=== PATIENT | female | born 1990 | race African-American/Black ===

== ENCOUNTER 2016-10-14 14:07 | Emergency (ER) | payer OTHER ==
[2016-10-14 14:18] VITALS: BMI 43.9
[2016-10-14 16:02] LABS: BASOPHIL 0.6 % (0-2.0); EOSINOPHIL 1.3 % (0-4.5); MCH 26.7 pg (25.7-33.7); MCHC 32.5 g/dl (32.0-36.0); MEAN CELL VOLUME 82.2 fl (80-96); MEAN PLT VOLUME 8.6 fl (7.5-11.1); NEUTROPHILS 77.5 % (42.8-82.8); PLATELET COUNT 254 K/MM3 (134-434); RDW 14.4 % (11.6-15.6); WHITE BLOOD COUNT 16.2 K/mm3 (4.0-10.0)
[2016-10-14 16:04] LABS: URINE APPEARANCE CLEAR; URINE BILIRUBIN NEGATIVE (NEGATIVE); URINE COLOR YELLOW; URINE GLUCOSE (UA) NEGATIVE (NEGATIVE); URINE KETONE NEGATIVE (NEGATIVE); URINE NITRITE NEGATIVE (NEGATIVE); URINE PROTEIN NEGATIVE (NEGATIVE); URINE UROBILINOGEN NEGATIVE E.U./dl (0.2-1.0)
[2016-10-14 16:15] LABS: URINE BLOOD 3+ (NEGATIVE); URINE LEUK ESTERASE TRACE (NEGATIVE)
[2016-10-14 16:21] LABS: URINE MUCUS FEW; URINE RBC 47 /hpf (0-3); URINE WBC 31 /hpf (3-5)
--- NOTE | 2016-10-14 16:25 | PDOC ---
History of Present Illness - History of Present Illness Initial Comments: 10/14/16 17:38 CHIEF COMPLAINT: ectopic HISTORY OF PRESENT ILLNESS: 25 yo A3 (1st preg PROM at 5 months, emergent c- section, second 2 preg medical abortions, 4th preg L ectopic preg managed successfully with methotrexate) F with no other PMH was sent to ED by [employer] for confirmed ectopic on US. Patient reports she is unsure what side the ectopic is on but denies any pain. She does report vaginal bleeding. No recent travel or sick contacts. PAST MEDICAL HISTORY: as per HPI FAMILY HISTORY: Denies SOCIAL HISTORY: Denies tobacco, alcohol, illicit drug use. SURGICAL HISTORY: Denies ALLERGIES: wheat REVIEW OF SYSTEMS General/Constitutional: Denies fever or chills. Denies weakness. HEENT: Denies change in vision. Denies ear pain or discharge. Denies sore throat. Cardiovascular: Denies chest pain or shortness of breath. Respiratory: Denies cough, wheezing, or hemoptysis. Gastrointestinal: Vaginal bleeding. Denies nausea, vomiting, diarrhea or constipation. Denies rectal bleeding. Genitourinary: Denies dysuria, frequency, or change in urination. Musculoskeletal: Denies joint or muscle swelling or pain. Denies neck or back pain. Skin and breasts: Denies rash or easy bruising. Neurologic: Denies headache, vertigo, loss of consciousness, or loss of sensation. PHYSICAL EXAM General Appearance: Well-appearing, appropriately dressed. No apparent distress. HEENT: EOMI, PERRLA, normal ENT inspection, normal voice, TMs normal, pharynx normal. No conjunctival pallor. No photophobia, scleral icterus. Neck: Supple. Trachea midline. No tenderness, rigidity, carotid bruit, stridor , lymphadenopathy, or thyromegaly. Respiratory/Chest: Lungs CTAB. No shortness of breath, chest tenderness, respiratory distress, accessory muscle use. No crackles, rales, rhonchi, stridor , wheezing, dullness Cardiovascular: RRR. S1, S2. No JVD, murmur, bradycardia, tachycardia. Vascular Pulses: Dorsalis-Pedis (R): 2+, Dorsalis-Pedis (L): 2+ Gastrointestinal/Abdominal: Normal bowel sounds. Abdomen soft, non-distended. No tenderness or rebound tenderness. No organomegaly, pulsatile mass, guarding , hernia, hepatomegaly, splenomegaly. Musculoskeletal/Extremities: Normal inspection. FROM of all extremities, normal capillary refill. Pelvis Stable. No CVA tenderness. No tenderness to extremities, pedal edema, swelling, erythema or deformity. Integumentary: Appropriate color, dry, warm. 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 Fully oriented, alert. Appropriate mood/affect. Motor strength 5/5. No appreciable EOM palsy, facial droop or sensory deficit. 10/14/16 18:56 <Cynthia Salinas - Last Filed: 10/14/16 18:56> <Abhishek Warren - Last Filed: 10/14/16 19:53> - General Chief Complaint: Vaginal Bleeding Stated Complaint: PHYSICAN REFERRAL Time Seen by Provider: 10/14/16 14:42 Past History - Past Medical History Anemia: No Asthma: No Cancer: No Cardiac Disorders: No Dementia: No Suicide Attempt (Hx): No - Reproductive History Is Patient Now?: Yes (#): 4 Para: 0 - Psycho/Social/Smoking Cessation Hx Anxiety: No Suicidal Ideation: No Smoking Status: No Smoking History: Current some day smoker Have you smoked in the past 12 months: Yes Number of Cigarettes Smoked Daily: 3 Information on smoking cessation initiated: No Hx Alcohol Use: No Drug/Substance Use Hx: No Substance Use Type: None Hx Substance Use Treatment: No <Cynthia Salinas - Last Filed: 10/14/16 18:56> <Abhishek Warren - Last Filed: 10/14/16 19:53> - Past Medical History Allergies/Adverse Reactions: Allergies Allergy/AdvReac Type Severity Reaction Status Date / Time wheat AdvReac Verified 10/14/16 16:17 Home Medications: Ambulatory Orders NK [No Known Home Medication] 07/11/15 *Physical Exam - Vital Signs Last Vital Signs Temp Pulse Resp BP Pulse Ox 98.5 F 119 H 18 127/57 100 10/14/16 14:14 10/14/16 14:14 10/14/16 14:14 10/14/16 14:14 10/14/16 14:14 <Cynthia Salinas - Last Filed: 10/14/16 18:56> - Vital Signs Last Vital Signs Temp Pulse Resp BP Pulse Ox 98.2 F 96 H 18 142/73 100 10/14/16 19:02 10/14/16 19:02 10/14/16 19:02 10/14/16 19:02 10/14/16 19:02 <Abhishek Warren - Last Filed: 10/14/16 19:53> ED Treatment Course - LABORATORY CBC & Chemistry Diagram: 10/14/16 15:50 10/14/16 15:50 - ADDITIONAL ORDERS Additional order review: Laboratory Results 10/14/16 15:50 Urine Color Yellow Urine Appearance Clear Urine pH 6.0 Urine Protein Negative Urine Glucose (UA) Negative Urine Ketones Negative Urine Blood 3+ H Urine Nitrite Negative Urine Bilirubin Negative Urine Urobilinogen Negative Ur Leukocyte Esterase Trace H 10/14/16 15:50 RBC 4.80 MCV 82.2 MCHC 32.5 RDW 14.4 MPV 8.6 Neutrophils % 77.5 Lymphocytes % 16.9 Monocytes % 3.7 L Eosinophils % 1.3 Basophils % 0.6 - RADIOLOGY Radiology Studies Ordered: Category Date Time Status TRANSVAGINAL US PREG [US] Stat Ultrasound 10/14/16 15:22 Ordered <Cynthia Salinas - Last Filed: 10/14/16 18:56> - LABORATORY CBC & Chemistry Diagram: 10/14/16 15:50 10/14/16 15:50 - ADDITIONAL ORDERS Additional order review: Laboratory Results 10/14/16 10/14/16 10/14/16 15:50 15:50 15:50 INR 1.09 Sodium Potassium Chloride Carbon Dioxide Anion Gap BUN Creatinine Creat Clearance w eGFR Random Glucose Calcium Total Bilirubin AST ALT Alkaline Phosphatase Total Protein Albumin Beta HCG, Quant Urine Color Yellow Urine Appearance Clear Urine pH 6.0 Urine Protein Negative Urine Glucose (UA) Negative Urine Ketones Negative Urine Blood 3+ H Urine Nitrite Negative Urine Bilirubin Negative Urine Urobilinogen Negative Ur Leukocyte Esterase Trace H Urine RBC 47 Urine WBC 31 Ur Epithelial Cells Moderate Urine Mucus Few Blood Type A POSITIVE Antibody Screen Negative 10/14/16 15:50 INR Sodium 142 Potassium 3.6 Chloride 106 Carbon Dioxide 29 Anion Gap 7 L BUN 11 Creatinine 0.9 D Creat Clearance w eGFR > 60 Random Glucose 87 Calcium 9.4 Total Bilirubin 0.6 AST 13 L ALT 20 Alkaline Phosphatase 74 Total Protein 6.9 Albumin 3.8 Beta HCG, Quant 1812.7 Urine Color Urine Appearance Urine pH Urine Protein Urine Glucose (UA) Urine Ketones Urine Blood Urine Nitrite Urine Bilirubin Urine Urobilinogen Ur Leukocyte Esterase Urine RBC Urine WBC Ur Epithelial Cells Urine Mucus Blood Type Antibody Screen 10/14/16 15:50 RBC 4.80 MCV 82.2 MCHC 32.5 RDW 14.4 MPV 8.6 Neutrophils % 77.5 Lymphocytes % 16.9 Monocytes % 3.7 L Eosinophils % 1.3 Basophils % 0.6 - Medications Given in the ED: ED Medications Discontinued Medications Generic Name Dose Route Start Last Admin Trade Name Freq PRN Reason Stop Dose Admin Sodium Chloride 1,000 mls @ 1,000 mls/hr 10/14/16 17:09 10/14/16 17:23 Normal Saline - IV 10/14/16 18:08 1,000 mls/hr ASDIR STA Administration <Abhishek Warren - Last Filed: 10/14/16 19:53> Progress Note - Progress Note Progress Note: 1941: Spoke with patient regarding ectopic treatment (Surgery) and that patient will need to be admitted. Patient states she is not staying because she needs to get her foster child situated. Patient was asked if someone else can do that for her. Patient responded no. Patient informed of risk associated with this condition such as , disability, ruptured membranes. Patient verbalized she understanding and is willing to sign out AMA. Dr. Montez made aware. Patient informed to return if symptoms worsen or any concerns to return right away. <Abhishek Warren - Last Filed: 10/14/16 19:53> Medical Decision Making - Medical Decision Making 10/14/16 17:48 25 yo A3 F with no other PMH was sent to ED by [employer] for confirmed ectopic on US. Vital signs notable for HR 119. -CBC, CMP, PT/INR, T&S -TV U/S 10/14/16 18:57 US results: Transabdominal and endovaginal imaging is available. The uterus measures 7.2 cm x 4.0 cm x 4.8 cm and is normal in appearance. No intrauterine is seen. The left ovary is normal measuring 3.8 cm x 1.5 cm x 2.4 cm however on the right side, the right ovary measures 3.5 cm x 2.0 cm x 2.9 cm with what appears to be a paraovarian ectopic on the right side. A pole is seen consistent with a 5 week and 6 day . heart rate is 160 bpm. No free fluid is seen IMPRESSION: Findings consistent with a right-sided ectopic . Read by: Mikey Mota MD [facility] service paged. Dr. Alex of [place] returned page, she is not on staff and not party plan demonstrator. Repeat call to [facility] service, awaiting call back. <Cynthia Salinas - Last Filed: 10/14/16 18:56> *DC/Admit/Observation/Transfer <Cynthia Salinas - Last Filed: 10/14/16 18:56> - Discharge Dispostion Admit: No <Abhishek Warren - Last Filed: 10/14/16 19:53> Diagnosis at time of Disposition: Ectopic without intrauterine Qualifiers: Location of ectopic : tubal Qualified Code(s): O00.10 - Tubal without intrauterine - Discharge Dispostion Disposition: AGAINST MEDICAL ADVICE Condition at time of disposition: Stable - Referrals Referrals: Hair Pierre MD [Primary Care Provider] - - Patient Instructions Printed Discharge Instructions: DI for Ectopic Additional Instructions: FOLLOW UP WITH YOUR RIGHT OF WAY WORKER SUNDAY MORNING. IF YOU CHANGE YOUR MIND OR SYMPTOMS CHANGE/GET WORSE, RETURN FOR FURTHER EVALUATION/TREATMENT RIGHT AWAY, OR GO TO THE NEAREST EMERGENCY DEPARTMENT. Print Language: TOGOLESE
[2016-10-14 16:26] LABS: INR 1.09 (0.82-1.09)
[2016-10-14 16:36] LABS: ALBUMIN 3.8 g/dl (3.4-5.0); ANION GAP 7 (8-16); BILIRUBIN,TOTAL 0.6 mg/dL (0.2-1.0); CALCIUM 9.4 mg/dL (8.5-10.1); CO2 29 mmol/L (21-32); COCKROFT - GAULT 161.3555; CREATININE 0.9 mg/dL (0.55-1.02); GLUCOSE,RANDOM 87 mg/dL (74-106); SGOT/AST 13 U/L (15-37); SGPT/ALT 20 U/L (12-78); TOT PROT 6.9 g/dl (6.4-8.2)
[2016-10-14 16:52] LABS: ALK PHOS 74 U/L (45-117)
[2016-10-14] MEDS ORDERED: SODIUM CHLORIDE 1,000 ML IV STA (17:09)
[2016-10-14 19:03] VITALS: TEMP 98.2
--- NOTE | 2016-10-14 19:26 | PDOC ---
*Physical Exam - Vital Signs Last Vital Signs Temp Pulse Resp BP Pulse Ox 98.2 F 96 H 18 142/73 100 10/14/16 19:02 10/14/16 19:02 10/14/16 19:02 10/14/16 19:02 10/14/16 19:02 - Physical Exam General Appearance: Yes: Nourished, Appropriately Dressed HEENT: positive: EOMI, Pharynx Normal Respiratory/Chest: positive: Lungs Clear, Normal Breath Sounds. negative: Respiratory Distress Cardiovascular: positive: Regular Rhythm, Regular Rate, S1, S2 Vascular Pulses: Dorsalis-Pedis (R): 2+, Doralis-Pedis (L): 2+ Gastrointestinal/Abdominal: positive: Normal Bowel Sounds. 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, Fully Oriented, Alert ED Treatment Course - LABORATORY CBC & Chemistry Diagram: 10/14/16 15:50 10/14/16 15:50 - ADDITIONAL ORDERS Additional order review: Laboratory Results 10/14/16 10/14/16 10/14/16 15:50 15:50 15:50 INR 1.09 Sodium Potassium Chloride Carbon Dioxide Anion Gap BUN Creatinine Creat Clearance w eGFR Random Glucose Calcium Total Bilirubin AST ALT Alkaline Phosphatase Total Protein Albumin Beta HCG, Quant Urine Color Yellow Urine Appearance Clear Urine pH 6.0 Urine Protein Negative Urine Glucose (UA) Negative Urine Ketones Negative Urine Blood 3+ H Urine Nitrite Negative Urine Bilirubin Negative Urine Urobilinogen Negative Ur Leukocyte Esterase Trace H Urine RBC 47 Urine WBC 31 Ur Epithelial Cells Moderate Urine Mucus Few Blood Type A POSITIVE Antibody Screen Negative 10/14/16 15:50 INR Sodium 142 Potassium 3.6 Chloride 106 Carbon Dioxide 29 Anion Gap 7 L BUN 11 Creatinine 0.9 D Creat Clearance w eGFR > 60 Random Glucose 87 Calcium 9.4 Total Bilirubin 0.6 AST 13 L ALT 20 Alkaline Phosphatase 74 Total Protein 6.9 Albumin 3.8 Beta HCG, Quant 1812.7 Urine Color Urine Appearance Urine pH Urine Protein Urine Glucose (UA) Urine Ketones Urine Blood Urine Nitrite Urine Bilirubin Urine Urobilinogen Ur Leukocyte Esterase Urine RBC Urine WBC Ur Epithelial Cells Urine Mucus Blood Type Antibody Screen 10/14/16 15:50 RBC 4.80 MCV 82.2 MCHC 32.5 RDW 14.4 MPV 8.6 Neutrophils % 77.5 Lymphocytes % 16.9 Monocytes % 3.7 L Eosinophils % 1.3 Basophils % 0.6 - Medications Given in the ED: ED Medications Discontinued Medications Generic Name Dose Route Start Last Admin Trade Name Freq PRN Reason Stop Dose Admin Sodium Chloride 1,000 mls @ 1,000 mls/hr 10/14/16 17:09 10/14/16 17:23 Normal Saline - IV 10/14/16 18:08 1,000 mls/hr ASDIR STA Administration Medical Decision Making - Medical Decision Making 10/14/16 19:24 25 yo F with /o prior ectopic here with c/o abd pain, vaginal bleeding. was seen at outpt obgyn clinic, jasmyn to have ectopic on right side. now no pain, still bleeding. on exam min ttp on abd exam plan: d/w ob. repeat tvus. labs RH type. *DC/Admit/Observation/Transfer Diagnosis at time of Disposition: Ectopic without intrauterine
[2016-10-14 20:58] VITALS: BP 110/52; PULSE 94
== END 2016-10-14 20:45 | disposition left against medical advice (07) ==
LOC: JER 14:07
PROC: 3E0337Z Introduction of Electrolytic and Water Balance Substance into Peripheral Vein, Percutaneous Approach (ICD-10-PCS; principal; 2016-10-14)
DX: O00.10 Tubal pregnancy without intrauterine pregnancy (principal); Z3A.00 Weeks of gestation of pregnancy not specified
CPT/HCPCS: 36415; 76817-TC; 80053; 81003; 81015; 84702; 85025; 85610; 86850; 86900; 86901; 87086; 96360; 99283-25

== ENCOUNTER 2016-10-18 13:14 | Emergency (ER) | payer OTHER ==
[2016-10-18 13:20] VITALS: BP 138/76; PULSE 117; TEMP 98.5; BMI 43.9
--- NOTE | 2016-10-18 13:56 | PDOC ---
History of Present Illness - General Chief Complaint: Vaginal Bleeding Stated Complaint: REVISIT/ VAGINAL BLEEDING History Source: Patient, Old Records Exam Limitations: No Limitations - History of Present Illness Initial Comments: 10/18/16 14:04 25-year-old female , LMP about 6 weeks ago with known right adnexal ectopic diagnosed as outpatient and again here on 10/14 in the setting of some vaginal bleeding now presents for surgery after previously having to refuse secondary to personal issues. The patient was initially diagnosed with an ectopic as an outpatient, she presented to the emergency department on 10/14 when an ultrasound confirmed a right adnexal ectopic. [employer] was consulted, surgery was recommended, but the patient could not stay in the hospital. She now presents for her surgery. Patient has had intermittent vaginal spotting, has been light over the last 48 hours. She has no pain whatsoever and no cramping. No fevers or chills, no vomiting or diarrhea. Past History - Past Medical History Allergies/Adverse Reactions: Allergies Allergy/AdvReac Type Severity Reaction Status Date / Time wheat AdvReac Verified 10/18/16 13:17 Home Medications: Ambulatory Orders NK [No Known Home Medication] 07/11/15 Anemia: No Asthma: No Cancer: No Cardiac Disorders: No Dementia: No Suicide Attempt (Hx): No - Reproductive History (#): 5 Para: 0 - Psycho/Social/Smoking Cessation Hx Anxiety: No Suicidal Ideation: No Smoking Status: No Smoking History: Never smoked Have you smoked in the past 12 months: Yes Number of Cigarettes Smoked Daily: 3 Hx Alcohol Use: No Drug/Substance Use Hx: No Substance Use Type: None Hx Substance Use Treatment: No Review of Systems - Review of Systems Constitutional: No: Chills, Fever Respiratory: No: Cough, Shortness of Breath Cardiac (ROS): No: Chest Pain, Edema, Lightheadedness, Palpitations ABD/GI: No: Diarrhea, Nausea, Vomiting : Yes: See HPI All Other Systems: Reviewed and Negative *Physical Exam - Vital Signs Last Vital Signs Temp Pulse Resp BP Pulse Ox 98.5 F 117 H 20 138/76 100 10/18/16 13:15 10/18/16 13:15 10/18/16 13:15 10/18/16 13:15 10/18/16 13:15 - Physical Exam Comments: 10/18/16 14:06 Vital signs as noted, heart rate 105 lying in stretcher GENERAL: The patient is awake, alert, and fully oriented, in no acute distress. HEAD: Normal with no signs of trauma. EYES: PERRL, EOMI, sclera anicteric, conjunctiva clear with no pallor. ENT: oropharynx clear without exudates. Moist mucous membranes. NECK: Normal range of motion, supple without lymphadenopathy, JVD, or masses. LUNGS: Breath sounds equal, clear to auscultation bilaterally. No wheeze/ crackles. HEART: Regular rate and rhythm, normal S1 and S2 without murmur or rub. ABDOMEN: Soft/nontender/nondistended. BS wnl. No guarding or rebound. No palpable masses. No hepatosplenomegaly. EXTREMITIES: Normal range of motion, no edema. 2+ distal pulses. No cords, erythema, or tenderness. NEUROLOGICAL: Cranial nerves II through XII grossly intact. Normal speech, normal gait. PSYCH: Normal mood, normal affect. SKIN: Warm, Dry, no rashes or lesions noted. ED Treatment Course - LABORATORY CBC & Chemistry Diagram: 10/18/16 14:37 10/18/16 14:37 Medical Decision Making - Medical Decision Making 10/18/16 14:07 25-year-old female with known right adnexal ectopic, LMP about 6 weeks, now requiring surgical intervention. Previously declined, now returning for same. She is hemodynamically stable, has a benign abdominal exam. Labs including hCG Ultrasound to reassess the ectopic to rule out evidence of rupture Will involve [employer] given the prior plan for surgery. 10/18/16 14:[address] Franklin, based on results of prior hCG of 1800 and measurement on IOC report, patient could be a candidate for methotrexate and avoid surgery. Will repeat hCG and ultrasound today and discuss again. 10/18/16 16:24 HCG 2374 from 1800. Hgb stable, HR 74 at rest. U/S confirms adnexal ectopic of about 6 weeks, no evidence of rupture. Case discussed again with Dr. Franklin. Based on HCG, pt remains good candidate for methotrexate. Pt prefers this route also and would like to spare surgery if at all possible. Will dose methotrexate, will f/u closely with Dr. Franklin on Sunday for repeat beta, and understands strict return criteria. *DC/Admit/Observation/Transfer Diagnosis at time of Disposition: Ectopic without intrauterine Qualifiers: Location of ectopic : tubal Qualified Code(s): O00.10 - Tubal without intrauterine - Discharge Dispostion Condition at time of disposition: Good - Referrals Referrals: Hair Pierre MD [Primary Care Provider] - Андрей Franklin MD [Staff Physician] - - Patient Instructions Printed Discharge Instructions: DI for Ectopic Additional Instructions: Activity as tolerated. Stay hydrated. An ectopic was again noted on the right. We discussed the case with OB /LABOR DELIVERY SPECIALIST Dr. Franklin, and you remain a good candidate for methotrexate to try and spare a surgery. You were given the injection in the ER today. You MUST follow up with Dr. Franklin on SUNDAY, 10/20 for repeat blood tests and evaluation. He is expecting to see you in his office. Call the number attached to determine a time. Return to the emergency department IMMEDIATELY for any new or concerning symptoms, particularly pain/cramping, bleeding, nausea or light-headedness, fever.
[2016-10-18 14:48] LABS: BASOPHIL 0.8 % (0-2.0); MCH 26.8 pg (25.7-33.7); MCHC 32.3 g/dl (32.0-36.0); MEAN PLT VOLUME 8.2 fl (7.5-11.1); NEUTROPHILS 77.7 % (42.8-82.8); PLATELET COUNT 250 K/MM3 (134-434); RDW 14.4 % (11.6-15.6)
[2016-10-18 15:01] LABS: INR 1.11 (0.82-1.09); PROTHROMBIN TIME (PATIENT) 12.2 SEC (9.98-11.88)
[2016-10-18 15:04] LABS: ACTIVATED PTT 33.4 SECONDS (26.9-34.4)
[2016-10-18 15:26] LABS: ALBUMIN 3.6 g/dl (3.4-5.0); ANION GAP 11 (8-16); BILIRUBIN,TOTAL 0.8 mg/dL (0.2-1.0); CO2 25 mmol/L (21-32); COCKROFT - GAULT 207.4595; CREATININE 0.7 mg/dL (0.55-1.02); GLUCOSE,RANDOM 71 mg/dL (74-106); SGOT/AST 16 U/L (15-37); SGPT/ALT 19 U/L (12-78); TOT PROT 6.8 g/dl (6.4-8.2)
[2016-10-18 15:42] LABS: ALK PHOS 68 U/L (45-117)
[2016-10-18] MEDS ORDERED: METHOTREXATE SODIUM/PF 25 MG/ML VIAL IM ONE (16:18)
== END 2016-10-18 17:40 | disposition home or self-care (01) ==
LOC: JER 13:14
PROC: 3E023GC Introduction of Other Therapeutic Substance into Muscle, Percutaneous Approach (ICD-10-PCS; principal; 2016-10-18)
DX: O00.10 Tubal pregnancy without intrauterine pregnancy (principal)
CPT/HCPCS: 36415; 76817-TC; 80053; 84702; 85025; 85610; 85730; 86850; 86900; 86901; 99282-25; J9260

== ENCOUNTER 2016-11-05 13:02 | Emergency (ER) | payer OTHER ==
[2016-11-05 13:16] VITALS: BP 137/70; TEMP 97.9; BMI 43.9
--- NOTE | 2016-11-05 13:30 | PDOC ---
History of Present Illness <Pratibha Florentino - Last Filed: 11/05/16 15:58> - General History Source: Patient Exam Limitations: No Limitations - History of Present Illness Initial Comments: CHIEF COMPLAINT: 25 yo A3 (1st preg PROM at 5 months, emergent , second 2 preg medical abortions, 4th preg L ectopic preg managed successfully with methotrexate) F with no other PMH was sent here for suspected continued ectopic despite methotrexate. HISTORY OF PRESENT ILLNESS: The patient was seen here on 10/14 and on 10/18 for ectopic . The patient states that on 10/18 she was prescribed methotrexate. She states she took the methotrexate and started bleeding on . She bled for 1 week with passage of clots. She states on 10/25 she had her beta HCG redrawn and the value was 2600, higher than the value on 10/18. Because of that hcg level she was told she needed to come back because she still has an ectopic. The patient denies vaginal bleeding, pain and all other symptoms. Vital signs on arrival are notable for pulse of 102. REVIEW OF SYSTEMS: GENERAL/CONSTITUTIONAL: No fever/chills. No weakness. No weight change. HEAD, EYES, EARS, NOSE AND THROAT: No change in vision. No ear pain or discharge. No sore throat. CARDIOVASCULAR: No chest pain or shortness of breath. RESPIRATORY: No cough, wheezing, or hemoptysis. GASTROINTESTINAL: No abd pain, nausea, vomiting, diarrhea. GENITOURINARY: No dysuria, frequency, or change in urination. MUSCULOSKELETAL: No joint or muscle swelling or pain. No neck or back pain. SKIN: No rash or easy bruising. NEUROLOGIC: No headache, vertigo, loss of consciousness, or loss of sensation. PHYSICAL EXAM: GENERAL: The patient is awake, alert, and fully oriented, in no acute distress. HEAD: Normal with no signs of trauma. ENT: Pupils equal, round and reactive to light, extraocular movements intact, sclera anicteric, conjunctiva clear. Neck supple. LUNGS: Clear to auscultation bilaterally. Normal excursion. No respiratory distress or use of accessory muscles. CV: RRR, S1/S2, no MRG. Cap refill < 2 sec. ABDOMEN: Soft, non-distended, non-tender even to deep palpation, no hepatomegaly or splenomegaly, no masses. EXTREMITIES: Normal range of motion, no edema. NEUROLOGICAL: Normal speech, normal gait. CN II-XII grossly intact. PSYCH: Normal mood, normal affect. SKIN: Warm, dry, normal turgor, no rashes or lesions noted. <Raven Mueller - Last Filed: 11/05/16 17:18> - General Chief Complaint: Revisit, Lab Variance Stated Complaint: ECTOPIC Time Seen by Provider: 11/05/16 13:29 Past History <Pratibha Florentino - Last Filed: 11/05/16 15:58> - Past Medical History Anemia: No Asthma: No Cancer: No Cardiac Disorders: No Dementia: No Suicide Attempt (Hx): No Thyroid Disease: No - Reproductive History (#): 5 Para: 0 - Psycho/Social/Smoking Cessation Hx Anxiety: No Suicidal Ideation: No Smoking Status: No Smoking History: Former smoker Have you smoked in the past 12 months: No Number of Cigarettes Smoked Daily: 3 If you are a former smoker, when did you quit?: 1993 Information on smoking cessation initiated: No Hx Alcohol Use: No Drug/Substance Use Hx: No Substance Use Type: None Hx Substance Use Treatment: No <Raven Mueller - Last Filed: 11/05/16 17:18> - Past Medical History Allergies/Adverse Reactions: Allergies Allergy/AdvReac Type Severity Reaction Status Date / Time wheat AdvReac Verified 11/05/16 13:16 Home Medications: Ambulatory Orders NK [No Known Home Medication] 11/05/16 *Physical Exam - Vital Signs Last Vital Signs Temp Pulse Resp BP Pulse Ox 97.9 F 102 H 13 137/70 100 11/05/16 13:06 11/05/16 13:06 11/05/16 13:06 11/05/16 13:06 11/05/16 13:06 <Pratibha Florentino - Last Filed: 11/05/16 15:58> - Vital Signs Last Vital Signs Temp Pulse Resp BP Pulse Ox 97.9 F 102 H 13 137/70 100 11/05/16 13:06 11/05/16 13:06 11/05/16 13:06 11/05/16 13:06 11/05/16 13:06 <Raven Mueller - Last Filed: 11/05/16 17:18> ED Treatment Course - ADDITIONAL ORDERS Additional order review: Laboratory Results 11/05/16 14:02 Beta HCG, Quant 432.1 - RADIOLOGY Radiograph Interpretation: 11/05/16 15:59 Transvaginal US Impression: In comparison to a previous study of 10/18/2016 there is no longer identification of cardiac activity in associate with a 0.7 cm ectopic within the right adnexa. The ectopic embryonic pole and gestational sac appear unchanged in size. No free intraperitoneal free fluid is noted. Reported By: Francis Knight MD <Pratibha Florentino - Last Filed: 11/05/16 15:58> Medical Decision Making - Medical Decision Making A/P: 25 y/o female here to find out of methotraxate worked for her ectopic . Plan is as follows: 1. beta hcg 2. Transvaginal ultrasound Beta hcg - 432, down from 1999 on 10/18; patient's heart rate has improved. Transvaginal ultrasound shows continued gestational sac and pole on right ovary; however heart beat is no longer detected. Spoke with Dr. Espinoza, OB/ FLOOR COVERING PRINTER congressional assistant, and she feels the ectopic will most likely be absorbed since the beta has decreased so dramatically. She states the patient does not need surgery and should follow up with her ORDER PICKER tomorrow for close follow up. The patient was instructed to return to the ER with any worsening or concerning symptoms. The patient verbalizes understanding of all instructions, has no further questions and is awaiting discharge. A portion of this note was written by my scribe, under my supervision. <Raven Mueller - Last Filed: 11/05/16 17:18> *DC/Admit/Observation/Transfer <Pratibha Florentino - Last Filed: 11/05/16 15:58> <Raven Mueller - Last Filed: 11/05/16 17:18> Diagnosis at time of Disposition: Ectopic Qualifiers: Location of ectopic : ovarian Intrauterine status: without intrauterine Qualified Code(s): O00.20 - Ovarian without intrauterine - Discharge Dispostion Disposition: HOME Condition at time of disposition: Good - Referrals Referrals: Hair Pierre MD [Primary Care Provider] - - Patient Instructions Printed Discharge Instructions: DI for Ectopic Additional Instructions: Discharge Instructions: -Please call your ORDER PICKER tomorrow to schedule a follow up appointment -Return to the ER with any worsening or concerning symptoms
--- NOTE | 2016-11-05 13:45 | PDOC ---
*Physical Exam - Vital Signs Last Vital Signs Temp Pulse Resp BP Pulse Ox 97.9 F 102 H 13 137/70 100 11/05/16 13:06 11/05/16 13:06 11/05/16 13:06 11/05/16 13:06 11/05/16 13:06 Medical Decision Making - Medical Decision Making 11/05/16 13:45 Pt seen by the Advanced Practice Provider under my direct supervision Ancillary studies reviewed I agree with plan as outlined by the Advanced Practice Provider SHEBA Skinner *DC/Admit/Observation/Transfer Diagnosis at time of Disposition: Ectopic - Discharge Dispostion Disposition: HOME Condition at time of disposition: Good - Referrals Referrals: Hair Pierre MD [Primary Care Provider] - - Patient Instructions Printed Discharge Instructions: DI for Ectopic Additional Instructions: Discharge Instructions: -Please call your [facility] tomorrow to schedule a follow up appointment -Return to the ER with any worsening or concerning symptoms
[2016-11-05 16:23] VITALS: PULSE 96
== END 2016-11-05 16:24 | disposition home or self-care (01) ==
LOC: JER 13:02
DX: O00.20 Ovarian pregnancy without intrauterine pregnancy (principal); Z87.891 Personal history of nicotine dependence
CPT/HCPCS: 36415; 76817-TC; 84702; 99282-25

== ENCOUNTER 2019-05-09 22:32 | Emergency (ER) | payer OTHER ==
[2019-05-09 23:01] VITALS: TEMP 98.7; BMI 25.6
--- NOTE | 2019-05-09 23:30 | PDOC ---
History of Present Illness - General Chief Complaint: Pain Stated Complaint: PAIN RIGHT SHOULDER Time Seen by Provider: 05/09/19 22:58 - History of Present Illness Initial Comments: Ms. Sebastian is a 28 y/o female with non-contributory PMH presenting today with right forearm and hand numbness. Reports that she was driving this evening when she reached back towards her son in the back seat with her right arm and subsequently felt a pop. Reports that she then felt numbness from her right elbow through her right fingers. Reports that the numbness is equal throughout the arm. Denies radiation or change in numbness sensation. Patient reports that the numbness worsens with touch. Past History - Past Medical History Allergies/Adverse Reactions: Allergies Allergy/AdvReac Type Severity Reaction Status Date / Time wheat AdvReac Verified 11/05/16 13:16 Home Medications: Ambulatory Orders NK [No Known Home Medication] 11/05/16 Anemia: No Asthma: No Cancer: No Cardiac Disorders: No COPD: No Dementia: No Thyroid Disease: No - Reproductive History (#): 5 Para: 0 Ectopic : Yes (CURRENT AND HX) - Psycho Social/Smoking Cessation Hx Smoking Status: No Smoking History: Never smoked Have you smoked in the past 12 months: No Number of Cigarettes Smoked Daily: 3 If you are a former smoker, when did you quit?: 1993 Hx Alcohol Use: No Drug/Substance Use Hx: No Substance Use Type: None Hx Substance Use Treatment: No Review of Systems - Review of Systems Comments:: GENERAL/CONSTITUTIONAL: No fever or chills. No weakness._ HEAD, EYES, EARS, NOSE AND THROAT: No change in vision. No change in hearing. No sore throat._ CARDIOVASCULAR: No chest pain or shortness of breath_ RESPIRATORY: Denies cough, hemoptysis_ GASTROINTESTINAL: No nausea, vomiting, diarrhea or constipation._ GENITOURINARY: No dysuria, frequency, or change in urination._ MUSCULOSKELETAL: Reports right forearm and hand numbness. SKIN: No rash_ NEUROLOGIC: No headache, vertigo, loss of consciousness, or change in strength/ sensation._ ENDOCRINE: No increased thirst. No abnormal weight change_ HEMATOLOGIC/LYMPHATIC: No anemia, easy bleeding, or history of blood clots._ ALLERGIC/IMMUNOLOGIC: No hives or skin allergy._ *Physical Exam - Vital Signs Last Vital Signs Temp Pulse Resp BP Pulse Ox 98.7 F 88 16 117/72 98 05/09/19 22:52 05/09/19 22:52 05/09/19 22:52 05/09/19 22:52 05/09/19 22:52 - Physical Exam GENERAL: Awake, alert, and oriented to person/place/time, in no acute distress_ HEAD: No signs of trauma, normocephalic, atraumatic _ EYES: PERRLA, EOMI, sclera anicteric, conjunctiva clear_ ENT: Hearing grossly normal, nares patent, oropharynx clear without exudates. No uvular deviation. Moist mucosa_ NECK: Normal ROM, supple, no lymphadenopathy, JVD, or masses_ LUNGS: No distress, speaks in full sentences, clear to auscultation bilaterally _ HEART: Regular rate and rhythm, normal S1 and S2, no murmurs appreciated, peripheral pulses normal and equal bilaterally._ ABDOMEN: Soft, nontender, normoactive bowel sounds. No guarding, no rebound. No masses_ EXTREMITIES: Normal inspection, Normal range of motion, no edema. No clubbing or cyanosis. RUE: Inspection: No erythema or ecchymosis. Tenderness and pain to light touch, no obvious abnormalities, no open wounds. Compartments soft and compressible. Sensation: sensation intact to light touch and pinprick and temperature, and equal bilaterally Motor: right elbow/wrist/hand strength testing limited 2/2 pain; 5/5 Shoulder ABd,Flex Vascular: 2+ radial pulse palpated, BCR all fingers <2 sec. NEUROLOGICAL: CN II-XII tested and intact. Sensation intact to sharp/dull differentiation in all extremities. Motor: Normal tone and bulk. No abnormal movements appreciated. No pronator drift. Strength tested and 5/5 in bilateral shoulder abduction, straight leg raise, knee flexion/extension, ankle dorsiflexion/plantarflexion. Patient ambulates with a steady gait. Strength testing in right elbow/wrist/hand limited 2/2 pain. Coordination: Finger to nose and heel to robins testing intact bilaterally. SKIN: Warm, Dry, normal turgor, no rashes or lesions noted_ Medical Decision Making - Medical Decision Making 28F presenting with right arm numbness and pain after reaching to the back seat while driving. -XR right shoulder/elbow/wrist/hand 05/10/19 00:59 Self-read of XR shows no obvious fracture or dislocation consistent with patient presentation. Plan to d/c home, with ortho f/u. Patient verbalized understanding and agreement with plan. All questions answered. Discharge - Discharge Information Problems reviewed: Yes Clinical Impression/Diagnosis: Right arm numbness Condition: Stable Disposition: HOME - Admission No - Follow up/Referral Referrals: Bladimir Martines MD [Staff Physician] - Shayne Salas MD [Staff Physician] - Sarabjit Clarke [Primary Care Provider] - - Patient Discharge Instructions Additional Instructions: Please make a follow up appointment with an orthopedics doctor and a neurologist (referrals provided here) to follow up the right forearm numbness. If you experience any new, worsening, or concerning symptoms, please return to the emergency department. - Post Discharge Activity
--- NOTE | 2019-05-10 00:55 | PDOC ---
Attending Attestation - Resident Resident Name: Brian Pryor - HPI HPI: 05/10/19 01:07 pt presents to the ED complaining of the acute onset of numbness from her R elbow to her fingertips. Patient states that she was reaching backward to find something in her car, when she felt a pop in her shoulder and then experienced numbness that extended from her elbow to fingertips in a glove like distribution. patient is reluctant to attempt to move her hand or forearm because it "makes the numbness worse". 05/10/19 01:12 - Physicial Exam PE: 05/10/19 01:22 Agree with resident exam. Patient is alert and in no acute distress. RUE: intact light touch and pinprick sensation. intact cap refill. Strength exam is pain limited. 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 No tenderness in the upper arm, no swelling. - Medical Decision Making 05/10/19 01:43 Pt presents to the Ed complaining of the acute onset of pain and numbness of her R hand and forearm. Benign exam except for pain limited strength. Most likely brachial neuritis. unlikely CVA given age, lack of risk factors and symptoms. Unlikely biceps tendon rupture of other serious injury. Will discharge home with instructions to return to the ED for worsening symptoms and follow up with ortho and neuro.
[2019-05-10 01:09] VITALS: BP 123/75; PULSE 82
== END 2019-05-10 01:05 | disposition home or self-care (01) ==
LOC: JER 22:32
DX: R20.0 Anesthesia of skin (principal); Z91.018 Allergy to other foods; Z87.891 Personal history of nicotine dependence
CPT/HCPCS: 73030-TC-RT-FY; 73070-TC-RT-FY; 73110-TC-RT-FY; 73130-TC-RT-FY; 99281-25

== ENCOUNTER 2022-09-26 21:21 | Emergency (ER) | payer OTHER ==
[2022-09-26 21:27] VITALS: BP 124/59; PULSE 95; RESP 16; TEMP 98; BMI 31.1
[2022-09-26] MEDS ORDERED: FAMOTIDINE 20 MG/50 ML IVPB 20 MG/50 ML MG IVPB ONE ×2 (22:29→22:33)
[2022-09-26] MEDS ORDERED: ONDANSETRON 4 MG/2 ML VIAL IVPUSH ONE (22:29)
[2022-09-26] MEDS ORDERED: DEXTROSE 5%-NORMAL SALINE 1,000 ML IV ONE (22:29)
[2022-09-26] MEDS ORDERED: ONDANSETRON 4 MG/2 ML VIAL ONE (22:33)
[2022-09-26 22:36] LABS: BASO % 0.6 % (0-2.0); EOS % 2.6 % (0-4.5); HEMATOCRIT 35.1 % (32.4-45.2); HEMOGLOBIN 11.7 GM/dL (10.7-15.3); LYMPH % 18.5 % (8-40); MCH 26.5 pg (25.7-33.7); MCHC 33.2 g/dl (32.0-36.0); MEAN CELL VOLUME 79.7 fl (80-96); MEAN PLT VOLUME 8.6 fl (7.5-11.1); MONO % 5.9 % (3.8-10.2); NEUT % 72.4 % (42.8-82.8); PLATELET COUNT 253 10^3/uL (134-434); RDW 14.6 % (11.6-15.6); WHITE BLOOD COUNT 14.7 K/mm3 (4.0-10.0)
[2022-09-26 22:38] LABS: URINE APPEARANCE CLEAR; URINE BILIRUBIN NEGATIVE (NEGATIVE); URINE COLOR YELLOW; URINE GLUCOSE (UA) NEGATIVE (NEGATIVE); URINE KETONE NEGATIVE (NEGATIVE); URINE LEUK ESTERASE NEGATIVE (NEGATIVE); URINE NITRITE NEGATIVE (NEGATIVE); URINE PROTEIN NEGATIVE (NEGATIVE)
[2022-09-26 22:46] LABS: INR 1.07 (0.83-1.09); PROTHROMBIN TIME (PATIENT) 12.4 SEC (9.7-13.0)
[2022-09-26 22:49] LABS: ACTIVATED PTT 28.5 SECONDS (25.2-36.5)
[2022-09-26 22:59] LABS: POTASSIUM 4.1 mmol/L (3.5-5.1)
[2022-09-26 23:01] LABS: ALBUMIN 3.3 g/dl (3.4-5.0); BLOOD UREA NITROGEN 9.5 mg/dL (7-18); CALCIUM 8.8 mg/dL (8.5-10.1)
[2022-09-26 23:05] LABS: CREATININE 0.7 mg/dL (0.55-1.3)
[2022-09-26 23:07] LABS: BILIRUBIN,TOTAL 0.6 mg/dL (0.2-1); TOT PROT 6.5 g/dl (6.4-8.2)
== END 2022-09-27 01:05 | disposition home or self-care (01) ==
LOC: JER 21:21
PROC: 3E033GC Introduction of Other Therapeutic Substance into Peripheral Vein, Percutaneous Approach (ICD-10-PCS; principal; 2022-09-26)
PROC: 3E033GC Introduction of Other Therapeutic Substance into Peripheral Vein, Percutaneous Approach (ICD-10-PCS; 2022-09-26)
PROC: 3E033GC Introduction of Other Therapeutic Substance into Peripheral Vein, Percutaneous Approach (ICD-10-PCS; 2022-09-26)
DX: O21.9 Vomiting of pregnancy, unspecified (principal); O26.891 Other specified pregnancy related conditions, first trimester; R10.13 Epigastric pain; Z3A.01 Less than 8 weeks gestation of pregnancy
CPT/HCPCS: 36415; 76705-TC; 76817-TC; 80053; 81003; 83690; 84702; 85025; 85610; 85730; 86850; 86900; 86901; 99285-25

== ENCOUNTER 2023-05-08 11:50 | Inpatient (IN) | payer OTHER ==
[2023-05-08] MEDS: ELECTROLYTE-148 SOLN 1,000 ML IV SCH ×2 (13:40→17:50)
[2023-05-08 14:27] LABS: BASO % 0.4 % (0-2.0); EOS % 0.7 % (0-4.5); HEMATOCRIT 36.9 % (32.4-45.2); HEMOGLOBIN 11.8 GM/dL (10.7-15.3); LYMPH % 8.5 % (8-40); MCHC 31.9 g/dl (32.0-36.0); MEAN CELL VOLUME 84.5 fl (80-96); MEAN PLT VOLUME 9.2 fl (7.5-11.1); MONO % 3.8 % (3.8-10.2); NEUT % 86.6 % (42.8-82.8); PLATELET COUNT 206 10^3/uL (134-434); RBC 4.37 M/mm3 (3.60-5.2); RDW 18.6 % (11.6-15.6); WHITE BLOOD COUNT 19.7 K/mm3 (4.0-10.0)
[2023-05-08 14:31] VITALS: BMI 32.9
[2023-05-08 14:36] LABS: INR 1.03 (0.83-1.09)
[2023-05-08 14:38] LABS: ACTIVATED PTT 29.5 SECONDS (25.2-36.5)
[2023-05-08 14:45] LABS: POTASSIUM 3.6 mmol/L (3.5-5.1)
[2023-05-08 14:47] LABS: CALCIUM 8.7 mg/dL (8.5-10.1)
[2023-05-08 14:48] LABS: BLOOD UREA NITROGEN 4.8 mg/dL (7-18)
[2023-05-08 14:52] LABS: CREATININE 0.5 mg/dL (0.55-1.3)
[2023-05-08] MEDS ORDERED: FENTANYL/BUPIVACAINE/NS/PF - PCEA - 50 ML DISP.SYRIN EP ONE (14:58)
[2023-05-08] MEDS ORDERED: BUPIVACAINE HCL/PF 0.25% (2.5MG/ML) 10 ML VIAL ONE (15:06)
[2023-05-08] MEDS ORDERED: LIDO 2%/EPI 1:200000 PRESRVFRE (20 ML SDVIAL) ONE (15:06)
[2023-05-08] MEDS ORDERED: NALOXONE HCL 0.4 MG/ML VIAL IVPUSH PRN (15:39)
[2023-05-08] MEDS ORDERED: FENTANYL/BUPIVACAINE/NS/PF - PCEA - 50 ML DISP.SYRIN EP SCH (15:45)
[2023-05-08 15:55] LABS: HIV INTERPRETATION NEGATIVE (NEGATIVE)
[2023-05-08] MEDS ORDERED: OXYTOCIN 30 UNITS in 0.9% NS 30 UNIT/500 ML INFUS.BAG IVPB SCH (16:00)
[2023-05-08] MEDS ORDERED: OXYTOCIN 20 UNITS in 0.9% NS 20 UNIT/1,000 ML INFUS.BAG IV ONE ×2 (16:54→22:34)
[2023-05-08] MEDS ORDERED: ACETAMINOPHEN 325 MG TABLET (FP) PO PRN (20:31)
[2023-05-08] MEDS ORDERED: BISACODYL 10 MG SUPP.RECT RC PRN (20:31)
[2023-05-08] MEDS ORDERED: BENZOCAINE 28 GM HEMORRHOIDAL OINTMENT TP PRN (20:31)
[2023-05-08] MEDS ORDERED: WITCH HAZEL 50% (TUCKS) 40 PAD/JAR PAD TP PRN (20:31)
[2023-05-08] MEDS ORDERED: METHYLERGONOVINE MALEATE 0.2 MG/1 ML AMP IM PRN (20:31)
[2023-05-08] MEDS ORDERED: BENZOCAINE 20% 57 GM BOTTLE TP PRN (20:31)
[2023-05-08] MEDS ORDERED: OXYTOCIN 20 UNITS in 0.9% NS 20 UNIT/1,000 ML INFUS.BAG IV SCH (20:45)
[2023-05-08 20:51] LABS: CORD BASE EXCESS -4.4 mmol/L (0-2); CORD HCO3 21.9 mmHg (20-29); CORD pH 7.306 (7.14-7.44)
[2023-05-08 20:52] LABS: CORD BASE EXCESS -6.2 mmol/L (0-2); CORD HCO3 23.5 mmHg (20-29); CORD PCO2 65.2 mmHg (30-78); CORD pH 7.175 (7.14-7.44)
[2023-05-09 08:35] LABS: HEMATOCRIT 31.5 % (32.4-45.2); HEMOGLOBIN 10.4 GM/dL (10.7-15.3); MCH 27.8 pg (25.7-33.7); MCHC 33.1 g/dl (32.0-36.0); MEAN CELL VOLUME 83.8 fl (80-96); MEAN PLT VOLUME 9.2 fl (7.5-11.1); PLATELET COUNT 178 10^3/uL (134-434); RBC 3.76 M/mm3 (3.60-5.2); RDW 18.2 % (11.6-15.6); WHITE BLOOD COUNT 20.3 K/mm3 (4.0-10.0)
[2023-05-09] MEDS: IBUPROFEN 600 MG TABLET (FP) PO PRN ×2 (09:02→23:46)
[2023-05-09 10:08] LABS: ANISOCYTOSIS 0; HELMET CELLS 0; HOWELL-JOLLY BODIES 0; MACROCYTOSIS 0; OVALOCYTE 0; ROULEAU 0; SICKELED CELLS 0; TARGET CELLS 0; TEAR DROP CELLS 0; TOXIC GRANULATION 0
[2023-05-09 17:49] VITALS: RESP 18
[2023-05-09] MEDS ORDERED: SENNOSIDES/DOCUSATE COMBO (SENNA PLUS) TABLET (UD) PO PRN (22:00)
[2023-05-10 10:35] VITALS: BP 120/78; PULSE 86; TEMP 97.8
== END 2023-05-10 13:05 | disposition home or self-care (01) | DRG 807 ==
LOC: JDEL 11:50 → JLDR 13:45 → J3W 22:53
PROVIDERS: ADMIT Obstetrics & Gynecology; ATTEND Obstetrics & Gynecology
PROC: 10E0XZZ Delivery of Products of Conception, External Approach (ICD-10-PCS; principal; 2023-05-08)
PROC: 0HQ9XZZ Repair Perineum Skin, External Approach (ICD-10-PCS; 2023-05-08)
PROC: 0W8NXZZ Division of Female Perineum, External Approach (ICD-10-PCS; 2023-05-08)
DX: O70.0 First degree perineal laceration during delivery (principal); Z3A.39 39 weeks gestation of pregnancy; Z37.0 Single live birth
CPT/HCPCS: 36415; 36600; 59025; 80048; 82803; 85025; 85610; 85730; 86780; 86850; 86900; 86901; 87389